=== PATIENT | male | born 1985 | race Hispanic/Latino ===

== ENCOUNTER 2021-02-27 20:21 | Emergency (ER) | payer SELFPAY ==
[2021-02-27] MEDS ORDERED: Ketorolac Tromethamine 30 MG/ML VIAL ONE (20:45)
[2021-02-27] MEDS ORDERED: Cyclobenzaprine 10 MG TAB ONE (20:45)
== END 2021-02-27 21:34 | disposition home or self-care (01) ==
LOC: ERS 20:21
DX: S39.012A Strain of muscle, fascia and tendon of lower back, initial encounter (principal); Y09 Assault by unspecified means
CPT/HCPCS: 96372; 99283; J1885